=== PATIENT | female | born 1985 | race Caucasian/White ===

== ENCOUNTER 2017-09-09 14:27 | Observation (INO) | payer MEDICAID ==
[~2017-09-09] VITALS: Ht 152.4 cm; Wt 72.6 kg
[2017-09-09] MEDS ORDERED: PNV1TABL76 PO (14:44)
[2017-09-09] MEDS ORDERED: BETAMETHASONE ACET/BETAMET 30 MG/5 ML VIAL IM NR (14:45)
== END 2017-09-09 15:05 | disposition home or self-care (01) ==
LOC: L&D 14:27
PROVIDERS: ADMIT Obstetrics & Gynecology; ATTEND Obstetrics & Gynecology
DX: Z34.92 Encounter for supervision of normal pregnancy, unspecified, second trimester (principal); Z3A.00 Weeks of gestation of pregnancy not specified
CPT/HCPCS: 96372; G0378; J0702

== ENCOUNTER 2017-09-10 14:49 | Observation (INO) | payer MEDICAID ==
[~2017-09-10 14:49] MED LIST: PNV1TABL76 PO
[2017-09-10] MEDS ORDERED: BETAMETHASONE ACET/BETAMET 30 MG/5 ML VIAL IM ONE (15:00)
[2017-09-10] MEDS ORDERED: BETAMETHASONE ACET/BETAMET 30 MG/5 ML VIAL IM NR (16:00)
== END 2017-09-10 15:10 | disposition home or self-care (01) ==
LOC: L&D 14:49
PROVIDERS: ADMIT Obstetrics & Gynecology; ATTEND Obstetrics & Gynecology
DX: Z34.92 Encounter for supervision of normal pregnancy, unspecified, second trimester (principal); Z3A.00 Weeks of gestation of pregnancy not specified
CPT/HCPCS: 96372; G0378; J0702

== ENCOUNTER 2017-11-25 14:52 | Observation (INO) | payer MEDICAID ==
[~2017-11-25] VITALS: Ht 154.9 cm; Wt 78.5 kg
== END 2017-11-25 16:33 | disposition home or self-care (01) ==
LOC: L&D 14:52
PROVIDERS: ADMIT Obstetrics & Gynecology; ATTEND Obstetrics & Gynecology
DX: Z34.93 Encounter for supervision of normal pregnancy, unspecified, third trimester (principal); Z3A.36 36 weeks gestation of pregnancy
CPT/HCPCS: 59025; 76815; 76818; G0378